=== PATIENT | female | born 1995 | race Caucasian/White ===

== ENCOUNTER 2016-09-09 10:44 | Emergency (ER) | payer MEDICAID, MEDICARE ==
[~2016-09-09] VITALS: Ht 154.9 cm; Wt 62.0 kg
[2016-09-09 11:11] VITALS: BP 125/93
== END 2016-09-09 12:54 | disposition left against medical advice (07) ==
LOC: ER 12:10
DX: Z00.00 Encounter for general adult medical examination without abnormal findings (principal); Z53.21 Procedure and treatment not carried out due to patient leaving prior to being seen by health care provider